=== PATIENT | male | born 1960 ===

== ENCOUNTER 2016-12-11 16:20 | Outpatient (CLI) | payer BC ==
--- NOTE | 2016-12-12 10:07 | XRay Report ---
Bilateral shoulder. History: Shoulder pain. Findings: There is arthritic changes noted at right and left a.c. joint. The glenohumeral joint bilaterally appears normal. No soft tissue calcification. Normal acromiohumeral space. Impression: Arthritic changes a.c. joint bilaterally.
--- NOTE | 2016-12-12 10:10 | XRay Report ---
Cervical spine 4 views: History: Cervical pain. Findings: Normal height of vertebral bodies. Decrease in height of C5-C6 and C6-C7. Sclerotic articular surfaces with peripheral osteophytes suggestive of cervical spondylosis. No fracture. Normal prevertebral soft tissue. Impression: Spondylosis C5-C6 and C6-7.
== END 2016-12-11 16:21 | disposition home or self-care (01) ==
LOC: SPVIMAG 16:20
PROVIDERS: ATTEND Internal Medicine
DX: M47.892 Other spondylosis, cervical region (principal); M25.78 Osteophyte, vertebrae; M13.812 Other specified arthritis, left shoulder; M13.811 Other specified arthritis, right shoulder
CPT/HCPCS: 72050